=== PATIENT | female | born 1985 | race Caucasian/White ===

== ENCOUNTER 2018-10-11 06:37 | Day surgery (SDC) | payer OTHER ==
[~2018-10-11 06:37] MED LIST: Lactated Ringers 1,000 ML IV SCH
[2018-10-11] MEDS ORDERED: fentaNYL 250 MCG/5 ML SDV ONE (07:01)
[2018-10-11] MEDS ORDERED: Midazolam 1 MG/ML 2 ML SDV ONE (07:01)
[2018-10-11] MEDS ORDERED: Propofol 200 MG/20 ML SDV ONE (07:01)
[2018-10-11] MEDS ORDERED: Dexamethasone 4 MG/ML 5 ML MDV ONE (07:03)
[2018-10-11] MEDS ORDERED: Ondansetron 4 MG/2 ML SDV ONE (07:03)
--- NOTE | 2018-10-11 07:09 | PCM.PREANE ---
Preanesthetic Assessment - Anesthesia/Transfusion/Family Hx Anesthesia History: Prior Anesthesia Without Reaction Transfusion History: No Prior Transfusion(s) - Review of Systems General: No Symptoms Pulmonary: No Symptoms Cardiovascular: No Symptoms Gastrointestinal: No Symptoms Neurological: No Symptoms Other: Reports: None - Physical Assessment Height: 5 ft 9 in Weight: 72.121 kg ASA Class: 1 Mental Status: Alert & Oriented x3 Airway Class: Mallampati = 2 Dentition: Reports: Normal Dentition Thyro-Mental Finger Breadths: 3 Mouth Opening Finger Breadths: 3 ROM/Head Extension: Full Lungs: Clear to Auscultation, Normal Respiratory Effort Cardiovascular: Regular Rate, Regular Rhythm - Allergies Allergies/Adverse Reactions: Allergies Allergy/AdvReac Type Severity Reaction Status Date / Time wheat Allergy Headache Verified 10/07/18 12:34 - Acknowledgements Anesthesia Type Planned: General Anesthesia Pt an Appropriate Candidate for the Planned Anesthesia: Yes Alternatives and Risks of Anesthesia Discussed w Pt/Guardian: Yes Pt/Guardian Understands and Agrees with Anesthesia Plan: Yes PreAnesthesia Questionnaire - Past Health History Medical/Surgical History: Denies Medical/Surgical History HEENT History: Reports: None Cardiovascular History: Reports: None Respiratory History: Reports: None Gastrointestinal History: Reports: GERD Other Gastrointestinal History: glutten intolerant Genitourinary History: Reports: None 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: Musculoskeletal History: Reports: Back Pain, Chronic Neurological History: Reports: Other (See Below) Other Neuro History: hx of motion sickness Psychiatric History: Reports: Anxiety Endocrine/Metabolic History: Reports: None Hematologic History: Reports: None Immunologic History: Reports: None Oncologic (Cancer) History: Reports: None Dermatologic History: Reports: None - Infectious Disease History Infectious Disease History: Reports: None - Past Surgical History HEENT Surgical History: Reports: Naso-Sinus Surgery - SUBSTANCE USE Smoking Status *Q: Never Smoker Recreational Drug Use History: No - HOME MEDS Home Medications: Home Meds Escitalopram Oxalate 10 mg PO DAILY 10/07/18 [History] Th[facility] For Life Womens Oral Ta 1 tab PO DAILY 10/07/18 [History] - CURRENT (IN HOUSE) MEDS Current Meds: Current Medications Lactated Ringer's (Ringers, Lactated) 1,000 mls @ 125 mls/hr IV ASDIRECTED OMAR Discontinued Medications Dexamethasone (Dexamethasone) Confirm Administered Dose 20 mg .ROUTE .STK-MED ONE Stop: 10/11/18 07:04 Fentanyl (Sublimaze) Confirm Administered Dose 250 mcg .ROUTE .STK-MED ONE Stop: 10/11/18 07:02 Lidocaine HCl (Xylocaine-Mpf 1%) Confirm Administered Dose 5 mls @ as directed .ROUTE .STK-MED ONE Stop: 10/11/18 07:04 Midazolam HCl (Versed 1 Mg/Ml) Confirm Administered Dose 2 mg .ROUTE .STK-MED ONE Stop: 10/11/18 07:02 Ondansetron HCl (Zofran) Confirm Administered Dose 4 mg .ROUTE .STK-MED ONE Stop: 10/11/18 07:04 Propofol (Diprivan 20 Ml) Confirm Administered Dose 200 mg .ROUTE .STK-MED ONE Stop: 10/11/18 07:02
[2018-10-11] MEDS ORDERED: ceFAZolin 1 GM Vial ONE ×2 (07:13→08:01)
[2018-10-11] MEDS ORDERED: Bupivacaine 0.5% 10 ML SDV ONE (07:13)
[2018-10-11] MEDS ORDERED: Ketorolac 30 MG/ML SDV ONE (07:35)
[2018-10-11] MEDS ORDERED: Sodium Chloride 0.9% 20 ML ONE (08:01)
[2018-10-11] MEDS ORDERED: fentaNYL 100 MCG/2 ML SDV IVPUSH PRN (08:19)
[2018-10-11] MEDS ORDERED: ePHEDrine 50 MG/ML SDV ONE (08:23)
[2018-10-11] MEDS ORDERED: Acetaminophen/HYDROcodone 325-5 MG Tab PO PRN (08:49)
[2018-10-11] MEDS ORDERED: Ondansetron 4 MG/2 ML SDV IVPUSH PRN (08:49)
[2018-10-11] MEDS ORDERED: Morphine 10 MG/ML Syringe IVPUSH PRN (08:49)
--- NOTE | 2018-10-11 08:53 | PCM.OPNOTE ---
- General Post-Op/Procedure Note Date of Surgery/Procedure: 10/11/18 Operative Procedure(s): Repair incarcerated umbilical hernia Pre Op Diagnosis: Incarcerated umbilical hernia Post-Op Diagnosis: Same Anesthesia Technique: General LMA (ASA I) Primary Surgeon: Feliciano Bear Fluid Replacement, Intraop: 800 EBL in mLs: 5 Condition: Good Free Text/Narrative:: DICTATION 143240 CPT CODE 97710
[2018-10-11] MEDS ORDERED: Lactated Ringers 1,000 ML IV SCH (09:00)
--- NOTE | 2018-10-11 09:11 | PCM.POSTAN ---
POST ANESTHESIA ASSESSMENT - MENTAL STATUS Mental Status: Alert, Oriented - RESPIRATORY Respiratory Status: Respiratory Rate WNL, Airway Patent, O2 Saturation Stable - CARDIOVASCULAR CV Status: Pulse Rate WNL, Blood Pressure Stable - GASTROINTESTINAL GI Status: No Symptoms - PAIN Pain Score: 3 - POST OP HYDRATION Hydration Status: Adequate & Stable
[2018-10-11 12:54] VITALS: BP 123/67
--- NOTE | 2018-10-11 12:58 | OR ---
SURGEON: Feliciano Bear M.D. DATE OF PROCEDURE: 10/11/2018 OPERATION PERFORMED: Repair of incarcerated umbilical hernia. ANESTHESIA: General LMA. ASA CLASSIFICATION: I. PREOPERATIVE DIAGNOSIS: Incarcerated umbilical hernia. POSTOPERATIVE DIAGNOSIS: Incarcerated umbilical hernia. ESTIMATED BLOOD LOSS: 5 mL. INTRAOPERATIVE FLUID REPLACEMENT: 800 mL of crystalloid. DESCRIPTION OF PROCEDURE: The patient was taken to the operating room and placed on the operating table in the supine position. Time-out was called for appropriate identification of the patient and procedure. The surgical site had been marked prior to the patient entering the operating room. Thigh-high TEDs and sequential compression boots were placed. Following satisfactory attainment of general anesthesia with placement of an LMA, the abdomen was prepped with DuraPrep solution. Sterile drapes were applied. Skin below the umbilicus was infiltrated with 10 mL of 0.5% Marcaine solution. Transverse skin incision was made in the infraumbilical position and deepened down to the fascia. The hernia sac was identified and dissected away from the overlying umbilical skin. The contents were able to be reduced. The defect was approximately 8 mm in greatest dimension. Hemostasis was obtained with the use of electrocautery. The fascial defect was repaired with multiple interrupted 0 Ethibond sutures. All sutures were placed under direct vision and held with hemostats until the final suture had been placed. Once the sutures were secured, the patient was given Valsalva maneuver to 34 cm of water. There was no evidence of residual hernia and the repair felt solid. The wound was then inspected for hemostasis and irrigated with sterile saline solution. Subcutaneous tissue was closed with 3-0 Vicryl. The skin edges were reapproximated with subcuticular 4-0 Monocryl, reinforced with half-inch Steri- Strips. 2 x 2 and sterile Tegaderm pad were placed as a dressing. Sponge, needle, and instrument counts were all correct. Patient tolerated the procedure well. Following emergence from anesthesia and extubation, she was taken to recovery room in stable condition. EMILIE MENDIOLA /[id number]
== END 2018-10-11 10:58 | disposition home or self-care (01) ==
LOC: MW.SDS 06:37
PROVIDERS: ATTEND Surgery
DX: K42.0 Umbilical hernia with obstruction, without gangrene (principal); F41.9 Anxiety disorder, unspecified; Z91.018 Allergy to other foods; Z79.899 Other long term (current) drug therapy
CPT/HCPCS: 49587; 81025; J0131; J0690; J1100; J1885; J2001; J2250; J2405; J2704; J3010; J3490; J7120

== ENCOUNTER 2020-02-05 23:28 | Inpatient (IN) | payer OTHER ==
[2020-02-05] MEDS ORDERED: Ropivacaine 0.2% PF 2 MG/ML 20 ML SDV ONE (23:52)
[2020-02-05] MEDS ORDERED: fentaNYL 100 MCG/2 ML SDV ONE (23:52)
[2020-02-05] MEDS ORDERED: Ropivacaine HCl/PF 100 ML ONE (23:52)
[2020-02-06] MEDS ORDERED: Lidocaine 1% 50 ML MDV INJECT PRN (00:17)
[2020-02-06] MEDS ORDERED: Sodium Chloride 0.9% 10 ML Syringe FLUSH PRN (00:17)
[2020-02-06] MEDS ORDERED: Methylergonovine 0.2 MG/1 ML Amp IM PRN (00:17)
[2020-02-06] MEDS ORDERED: Carboprost Tromethamine 250 MCG/1 ML Amp IM PRN (00:17)
[2020-02-06] MEDS ORDERED: Sodium Chloride 0.9% 2.5 ML Syringe FLUSH PRN (00:17)
[2020-02-06] MEDS ORDERED: Sodium Chloride 0.9% 10 ML SDV IV PRN (00:17)
[2020-02-06] MEDS ORDERED: Tranexamic Acid 1,000 MG in Sodium Chloride 0.9% 100 ML IV PRN (00:17)
[2020-02-06] MEDS ORDERED: Butorphanol 1 MG/ML SDV IVPUSH PRN (00:17)
[2020-02-06] MEDS ORDERED: Water For Irrigation,Sterile 1,000 ML Container IRR PRN (00:17)
[2020-02-06] MEDS ORDERED: Nalbuphine 10 MG/1 ML Vial IVPUSH PRN (00:17)
[2020-02-06] MEDS ORDERED: Misoprostol 200 MCG Tab PO PRN (00:17)
--- NOTE | 2020-02-06 00:24 | PCM.PREANE ---
Preanesthetic Assessment - Anesthesia/Transfusion/Family Hx Anesthesia History: Prior Anesthesia Without Reaction Family History of Anesthesia Reaction: No Transfusion History: No Prior Transfusion(s) Intubation History: Unknown - Review of Systems General: No Symptoms Pulmonary: No Symptoms Cardiovascular: Other (History of pleural effusion 11/16) Gastrointestinal: No Symptoms Neurological: No Symptoms Other: Reports: None - Physical Assessment NPO Status Date: 02/06/20 NPO Status Time: 00:21 Height: 69 cm ASA Class: 2 Mental Status: Alert & Oriented x3 Airway Class: Mallampati = 1 Dentition: Reports: Normal Dentition Thyro-Mental Finger Breadths: 3 Mouth Opening Finger Breadths: 3 ROM/Head Extension: Full Lungs: Clear to Auscultation Cardiovascular: Regular Rate - Allergies Allergies/Adverse Reactions: Allergies Allergy/AdvReac Type Severity Reaction Status Date / Time wheat Allergy Headache Verified 01/07/20 16:13 - Blood Blood Available: No Product(s) Available: None - Anesthesia Plan Pre-Op Medication Ordered: None - Acknowledgements Anesthesia Type Planned: Epidural Pt an Appropriate Candidate for the Planned Anesthesia: Yes Alternatives and Risks of Anesthesia Discussed w Pt/Guardian: Yes Pt/Guardian Understands and Agrees with Anesthesia Plan: Yes Additional Comments: in active labor. Pain 8/10. Previous DONNA. ? answered. Permit signed. Wishes to proceed. 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: Musculoskeletal History: Reports: Back Pain, Chronic Neurological History: Reports: Other (See Below) Other Neuro History: hx of motion sickness Psychiatric History: Reports: Anxiety Endocrine/Metabolic History: Reports: None Hematologic History: Reports: None Immunologic History: Reports: None Oncologic (Cancer) History: Reports: None Dermatologic History: Reports: None - Infectious Disease History Infectious Disease History: Reports: None - Past Surgical History HEENT Surgical History: Reports: Naso-Sinus Surgery - HOME MEDS Home Medications: Home Meds Escitalopram Oxalate 10 mg PO BEDTIME 10/07/18 [History] Lansoprazole [Prevacid] 1 cap PO 01/07/20 [History] - CURRENT (IN HOUSE) MEDS Current Meds: Current Medications Discontinued Medications Fentanyl (Sublimaze) Confirm Administered Dose 100 mcg .ROUTE .STK-MED ONE Stop: 02/05/20 23:53 Ropivacaine (Naropin 0.2%) Confirm Administered Dose 100 mls @ as directed .ROUTE .STK-MED ONE Stop: 02/05/20 23:53 Ropivacaine (Naropin 0.2%) Confirm Administered Dose 20 ml .ROUTE .STK-MED ONE Stop: 02/05/20 23:53
[2020-02-06] MEDS ORDERED: Oxytocin/0.9 % Sodium Chloride 30 UNIT/500 ML BAG IV SCH (00:30)
[2020-02-06] MEDS: Lactated Ringers 1,000 ML IV SCH ×2 (00:44)
[2020-02-06] MEDS ORDERED: Oxytocin/0.9 % Sodium Chloride 30 UNIT/500 ML BAG ONE (01:15)
[2020-02-06] MEDS ORDERED: Acetaminophen 500 MG Tab PO PRN (02:37)
[2020-02-06] MEDS ORDERED: Bisacodyl 10 MG Supp RECTAL PRN (02:37)
[2020-02-06] MEDS ORDERED: Witch Hazel Medicated Pads 40/Jar TOP PRN (02:37)
[2020-02-06] MEDS ORDERED: Docusate Sodium 100 MG Cap PO PRN (02:37)
[2020-02-06] MEDS ORDERED: Lanolin 100% Cream 7 GM Tube TOP PRN (02:37)
[2020-02-06] MEDS ORDERED: oxyCODONE 5 MG Tab PO PRN (02:37)
[2020-02-06] MEDS ORDERED: Benzocaine/Menthol 20%-0.5% Spray 78 GM Cannister TOP PRN (02:37)
--- NOTE | 2020-02-06 02:44 | PCM.DEL ---
L & D Note - General Info Date of Service: 02/06/20 Mother's Due Date: 02/16/20 - Delivery Note Labor: Spontaneous Delivery Outcome: Livebirth Infant Delivery Method: Spontaneous Vaginal Delivery-Single Presentation: Right Occiput Anterior (COMPA) Nuchal Cord: None Anesthesia Type: Epidural Amniotic Fluid Description: Clear Episiotomy Type: None Laceration: 1st Degree Suture type: Vicryl Suture size: 3-0 Placenta: Intact, Spontaneous Cord: 3 Vessels Estimated Blood Loss: 300 Resuscitation Needed: No Score 1 min: 8 Score 5 min: 8 - General Info Date of Service: 02/06/20 - Patient Data Weight - Most Recent: 78.018 kg Lab Results Last 24 Hours: Laboratory Results - last 24 hr 02/06/20 02/06/20 02/06/20 Range/Units 00:00 00:00 00:07 WBC 8.83 (4.0-11.0) K/uL RBC 4.15 L (4.30-5.90) M/uL Hgb 11.2 L (12.0-16.0) g/dL Hct 34.3 L (36.0-46.0) % MCV 82.7 (80.0-98.0) fL MCH 27.0 (27.0-32.0) pg MCHC 32.7 (31.0-37.0) g/dL RDW Std Deviation 40.7 (28.0-62.0) fl RDW Coeff of Randi 13 (11.0-15.0) % Plt Count 272 (150-400) K/uL MPV 10.10 (7.40-12.00) fL Nucleated RBC % 0.0 /100WBC Nucleated RBCs # 0 K/uL COVID-19 ([facility]) NEGATIVE (NEGATIVE) Blood Type A POSITIVE Antibody Screen NEGATIVE Med Orders - Current: Current Medications Acetaminophen (Tylenol Extra Strength) 1,000 mg PO Q6H PRN PRN Reason: Pain Benzocaine/Menthol (Dermoplast Pain Relief 20%-0.5% [place]) 78 gm TOP ASDIRECTED PRN PRN Reason: Perineal Comfort Measure Bisacodyl (Dulcolax) 10 mg RECTAL ONETIME PRN PRN Reason: Constipation Butorphanol Tartrate (Stadol) 1 mg IVPUSH Q1H PRN PRN Reason: Pain Carboprost Tromethamine (Hemabate Ds) 250 mcg IM ASDIRECTED PRN PRN Reason: Post Hemorrhage Docusate Sodium (Colace) 100 mg PO BID PRN PRN Reason: Constipation Emollient Ointment (Lansinoh Hpa) 0 gm TOP ASDIRECTED PRN PRN Reason: Sore Nipples Escitalopram Oxalate (Lexapro) 10 mg PO BEDTIME [facility] Lactated Ringer's (Ringers, Lactated) 1,000 mls @ 150 mls/hr IV ASDIRECTED [facility] Last Admin: 02/06/20 00:44 Dose: 150 mls/hr Documented by: Oxytocin/Sodium Chloride (Oxytocin 30 Unit/500 Ml-Ns) 30 unit in 500 mls @ 500 mls/hr IV TITRATE [facility] Last Admin: 02/06/20 02:20 Dose: 999 mls/hr Documented by: Tranexamic Acid 1,000 mg/ (Sodium Chloride) 110 mls @ 660 mls/hr IV ONETIME PRN PRN Reason: Bleeding Ibuprofen (Motrin) 800 mg PO Q8H PRN PRN Reason: Pain Lidocaine HCl (Xylocaine 1%) 50 ml INJECT ONETIME PRN PRN Reason: Laceration repair Methylergonovine Maleate (Methergine) 0.2 mg IM ASDIRECTED PRN PRN Reason: Post Hemorrhage Misoprostol (Cytotec) 200 mcg PO ONETIME PRN PRN Reason: Post Hemorrhage Nalbuphine HCl (Nubain) 10 mg IVPUSH Q1H PRN PRN Reason: Pain (severe 7-10) Oxycodone HCl (Oxycodone) 5 mg PO Q2H PRN PRN Reason: Pain Sodium Chloride (Saline Flush) 10 ml FLUSH ASDIRECTED PRN PRN Reason: Keep Vein Open Sodium Chloride (Saline Flush) 2.5 ml FLUSH ASDIRECTED PRN PRN Reason: Keep Vein Open Sodium Chloride (Normal Saline) 10 ml IV ASDIRECTED PRN PRN Reason: IV Use Sterile Water (Sterile Water For Irrigation) 1,000 ml IRR ASDIRECTED PRN PRN Reason: delivery Witch Kathy (Tucks) 1 pad TOP ASDIRECTED PRN PRN Reason: comfort care Discontinued Medications Fentanyl (Sublimaze) Confirm Administered Dose 100 mcg .ROUTE .STK-MED ONE Stop: 02/05/20 23:53 Ropivacaine (Naropin 0.2%) Confirm Administered Dose 100 mls @ as directed .ROUTE .STK-MED ONE Stop: 02/05/20 23:53 Oxytocin/Sodium Chloride (Oxytocin 30 Unit/500 Ml-Ns) Confirm Administered Dose 30 unit in 500 mls @ as directed .ROUTE .STK-MED ONE Stop: 02/06/20 01:16 Ropivacaine (Naropin 0.2%) Confirm Administered Dose 20 ml .ROUTE .STK-MED ONE Stop: 02/05/20 23:53 - Problem List & Annotations (1) Vaginal delivery SNOMED Code(s): 290367305 Code(s): O80 - ENCOUNTER FOR FULL-TERM UNCOMPLICATED DELIVERY Status: Acute Current Visit: No - Problem List Review Problem List Initiated/Reviewed/Updated: Yes - My Orders Last 24 Hours: My Active Orders 02/06/20 00:00 RPR (SYPHILIS SERO) W/ RFLX [REF] Routine 02/06/20 00:17 Patient Status [ADT] Routine Heart Tones [RC] CONTINUOUS Non Stress Test [RC] PER UNIT ROUTINE May Shower [RC] ASDIRECTED Notify Provider [RC] PRN Up ad Vandana [RC] ASDIRECTED Vaginal Exam [RC] PRN Vital Signs [RC] PER UNIT ROUTINE Butorphanol [Stadol] 1 mg IVPUSH Q1H PRN Carboprost Tromethamine [Hemabate DS] 250 mcg IM ASDIRECTED PRN Lidocaine 1% [Xylocaine 1%] 50 ml INJECT ONETIME PRN Methylergonovine [Methergine] 0.2 mg IM ASDIRECTED PRN Nalbuphine [Nubain] 10 mg IVPUSH Q1H PRN Sodium Chloride 0.9% [Normal Saline] 10 ml IV ASDIRECTED PRN Sodium Chloride 0.9% [Saline Flush] 10 ml FLUSH ASDIRECTED PRN Sodium Chloride 0.9% [Saline Flush] 2.5 ml FLUSH ASDIRECTED PRN Tranexamic Acid [Cyklokapron] 1,000 mg Sodium Chloride 0.9% [Normal Saline] 100 ml IV ONETIME Water For Irrigation,Sterile [Sterile Water for Irrigation] 1,000 ml IRR ASDIRECTED PRN miSOPROStoL [Cytotec] 200 mcg PO ONETIME PRN Scalp Electrode [WOMSER] Per Unit Routine Peripheral IV Insertion Adult [OM.PC] Routine Resuscitation Status Routine 02/06/20 00:30 Lactated Ringers [Ringers, Lactated] 1,000 ml IV ASDIRECTED Oxytocin/0.9 % Sodium Chloride [Oxytocin 30 Unit/500 ML-NS] 30 unit in 500 ml IV TITRATE 02/06/20 02:37 Notify Provider Vital Signs [RC] ASDIRECTED Acetaminophen [Tylenol Extra Strength] 1,000 mg PO Q6H PRN Benzocaine/Menthol [Dermoplast Pain Relief 20%-0.5% [place]] 78 gm TOP ASDIRECTED PRN Docusate Sodium [Colace] 100 mg PO BID PRN Ibuprofen [Motrin] 800 mg PO Q8H PRN Lanolin [Lansinoh HPA] See Dose Instructions TOP ASDIRECTED PRN bisacodyL [Dulcolax] 10 mg RECTAL ONETIME PRN oxyCODONE 5 mg PO Q2H PRN witch Kathy [Tucks] 1 pad TOP ASDIRECTED PRN Breast Pump [WOMSER] Per Unit Routine 02/06/20 02:38 Patient Status [ADT] Routine Cooling Warming Measures [RC] ASDIRECTED May Shower [RC] ASDIRECTED Up ad Vandana [RC] ASDIRECTED Vital Signs [RC] PER UNIT ROUTINE Assess Lochia [WOMSER] Per Unit Routine Assess Uterine Involution [WOMSER] Per Unit Routine Ice Therapy [OM.PC] Per Unit Routine Perineal Care [OM.PC] Per Unit Routine Peripheral IV Discontinue [OM.PC] Routine Sitz Bath [OM.PC] Per Unit Routine 02/06/20 Breakfast Regular Diet [DIET] 02/06/20 21:00 Escitalopram [Lexapro] 10 mg PO BEDTIME 02/07/20 05:11 HEMOGLOBIN/HEMATOCRIT,HH [HEME] Timed - Assessment Assessment:: 34yo s/p at 38w4d - Plan Plan:: Admit to unit for routine care. Continue Escitalopram.
--- NOTE | 2020-02-06 03:27 | OR ---
SURGEON: Natalie Avila MD DATE OF PROCEDURE: 02/06/2020 PREOPERATIVE DIAGNOSES: 1. A 34-year-old G4, P3-0-0-3, at 38 weeks and 3 days' gestation. 2. Labor. 3. Group B Streptococcus negative. POSTOPERATIVE DIAGNOSES: 1. A 34-year-old G4, P4-0-0-4, at 38 weeks and 4 days' gestation. 2. Labor. 3. Group B Streptococcus negative. PROCEDURES: 1. Spontaneous vaginal delivery. 2. Repair of a first-degree perineal laceration. PRIMARY SURGEON: Natalie Avila MD ANESTHESIA: Epidural. ESTIMATED BLOOD LOSS: 300 mL. FINDINGS: A live female infant in a cephalic presentation. scores are 8 and 8 at 1 and 5 minutes respectively. Weight is pending. Placenta is intact and with a 3- vessel cord. A first-degree perineal laceration. INDICATIONS: This is a 34-year-old G4, P3-0-0-3, who presented at 38 weeks and 3 days' gestation complaining of contractions. Upon presentation, her cervix was found to be 5 cm dilated, which was a change from clinic earlier in the day when she was 3 cm dilated. She was admitted to Labor and Delivery for expectant management of labor. She received an epidural for pain control. She progressed to complete cervical dilation and had spontaneous rupture of membranes with clear fluid noted. I was called to the room. DESCRIPTION OF PROCEDURE: I arrived to the room with station at +1 station. Over the next 2 contractions, the patient pushed and delivered a live female infant. The head was delivered, followed by the shoulders and the remainder of the body. The infant was placed on the maternal abdomen. After approximately 60 seconds, the cord was clamped and cut. The placenta then delivered intact and with a 3- vessel cord via the Aguayo-Jones maneuver. The perineum was inspected, and a first-degree perineal laceration was noted. This was repaired to anatomy and hemostasis with 3-0 Vicryl. The fundus was firm below the umbilicus with minimal bleeding. The patient and infant tolerated delivery well. [id number] / MODL /[id number] NAV
--- NOTE | 2020-02-06 07:33 | PCM48HPAN ---
Post Anesthesia Note - EVALUATION WITHIN 48HRS OF ANESTHETIC Vital Signs in Normal Range: Yes Patient Participated in Evaluation: Yes Respiratory Function Stable: Yes Airway Patent: Yes Cardiovascular Function Stable: Yes Hydration Status Stable: Yes Pain Control Satisfactory: Yes Nausea and Vomiting Control Satisfactory: Yes Mental Status Recovered: Yes - COMMENTS/OBSERVATIONS Free Text/Narrative:: Did well. No problems noted post. Catheter pulled, tip intact.
[2020-02-06] MEDS: Ibuprofen 800 MG Tab PO PRN ×2 (09:08→17:14)
[2020-02-06] MEDS ORDERED: Escitalopram 10 MG Tab PO SCH (21:00)
[2020-02-07 07:58] VITALS: BP 128/79; PULSE 76
[2020-02-07] MEDS: Ibuprofen 800 MG Tab PO PRN (07:59)
--- NOTE | 2020-02-07 08:04 | PCM.PNPP ---
- General Info Date of Service: 02/07/20 Functional Status: Reports: Pain Controlled, Tolerating Diet, Ambulating, Urinating - Review of Systems General: Reports: No Symptoms HEENT: Reports: No Symptoms Pulmonary: Reports: No Symptoms Cardiovascular: Reports: No Symptoms Gastrointestinal: Reports: No Symptoms Genitourinary: Reports: No Symptoms Musculoskeletal: Reports: No Symptoms Skin: Reports: No Symptoms Neurological: Reports: No Symptoms Psychiatric: Reports: No Symptoms - General Info Date of Service: 02/07/20 - Patient Data Vital Signs - Most Recent: Last Vital Signs Temp 37.0 C 02/07/20 07:57 Pulse 76 02/07/20 07:57 Resp 16 02/07/20 07:57 BP 128/79 02/07/20 07:57 Pulse Ox 97 02/07/20 07:57 Weight - Most Recent: 78.018 kg Lab Results - Last 24 Hours: Laboratory Results - last 24 hr 02/07/20 Range/Units 05:50 Hgb 10.6 L (12.0-16.0) g/dL Hct 33.0 L (36.0-46.0) % Med Orders - Current: Current Medications Acetaminophen (Tylenol Extra Strength) 1,000 mg PO Q6H PRN PRN Reason: Pain Benzocaine/Menthol (Dermoplast Pain Relief 20%-0.5% [place]) 78 gm TOP ASDIRECTED PRN PRN Reason: Perineal Comfort Measure Last Admin: 02/06/20 05:35 Dose: 1 canister Documented by: Bisacodyl (Dulcolax) 10 mg RECTAL ONETIME PRN PRN Reason: Constipation Butorphanol Tartrate (Stadol) 1 mg IVPUSH Q1H PRN PRN Reason: Pain Carboprost Tromethamine (Hemabate Ds) 250 mcg IM ASDIRECTED PRN PRN Reason: Post Hemorrhage Docusate Sodium (Colace) 100 mg PO BID PRN PRN Reason: Constipation Last Admin: 02/06/20 21:27 Dose: 100 mg Documented by: Emollient Ointment (Lansinoh Hpa) 0 gm TOP ASDIRECTED PRN PRN Reason: Sore Nipples Escitalopram Oxalate (Lexapro) 10 mg PO BEDTIME [facility] Last Admin: 02/06/20 21:27 Dose: 10 mg Documented by: Lactated Ringer's (Ringers, Lactated) 1,000 mls @ 150 mls/hr IV ASDIRECTED [facility] Last Admin: 02/06/20 00:44 Dose: 150 mls/hr Documented by: Oxytocin/Sodium Chloride (Oxytocin 30 Unit/500 Ml-Ns) 30 unit in 500 mls @ 500 mls/hr IV TITRATE [facility] Last Admin: 02/06/20 02:20 Dose: 999 mls/hr Documented by: Tranexamic Acid 1,000 mg/ (Sodium Chloride) 110 mls @ 660 mls/hr IV ONETIME PRN PRN Reason: Bleeding Ibuprofen (Motrin) 800 mg PO Q8H PRN PRN Reason: Pain Last Admin: 02/07/20 07:59 Dose: 800 mg Documented by: Lidocaine HCl (Xylocaine 1%) 50 ml INJECT ONETIME PRN PRN Reason: Laceration repair Methylergonovine Maleate (Methergine) 0.2 mg IM ASDIRECTED PRN PRN Reason: Post Hemorrhage Misoprostol (Cytotec) 200 mcg PO ONETIME PRN PRN Reason: Post Hemorrhage Nalbuphine HCl (Nubain) 10 mg IVPUSH Q1H PRN PRN Reason: Pain (severe 7-10) Oxycodone HCl (Oxycodone) 5 mg PO Q2H PRN PRN Reason: Pain Sodium Chloride (Saline Flush) 10 ml FLUSH ASDIRECTED PRN PRN Reason: Keep Vein Open Sodium Chloride (Saline Flush) 2.5 ml FLUSH ASDIRECTED PRN PRN Reason: Keep Vein Open Sodium Chloride (Normal Saline) 10 ml IV ASDIRECTED PRN PRN Reason: IV Use Sterile Water (Sterile Water For Irrigation) 1,000 ml IRR ASDIRECTED PRN PRN Reason: delivery Witch Kathy (Tucks) 1 pad TOP ASDIRECTED PRN PRN Reason: comfort care Last Admin: 02/06/20 05:35 Dose: 1 tub Documented by: Discontinued Medications Fentanyl (Sublimaze) Confirm Administered Dose 100 mcg .ROUTE .STK-MED ONE Stop: 02/05/20 23:53 Ropivacaine (Naropin 0.2%) Confirm Administered Dose 100 mls @ as directed .ROUTE .STK-MED ONE Stop: 02/05/20 23:53 Oxytocin/Sodium Chloride (Oxytocin 30 Unit/500 Ml-Ns) Confirm Administered Dose 30 unit in 500 mls @ as directed .ROUTE .STK-MED ONE Stop: 02/06/20 01:16 Ropivacaine (Naropin 0.2%) Confirm Administered Dose 20 ml .ROUTE .STK-MED ONE Stop: 02/05/20 23:53 - Infant Interaction Infant Disposition, : in Room with Family Interaction: Holding Feeding: Breastfed Infant; Nursed Well, Continues to Breastfeed Support Person: - Recovery Exam Fundal Tone: Firm Fundal Level: 2 Fingerbreadths Below Umbilicus Fundal Placement: Midline Lochia Amount: Scant Lochia Color: Rubra/Red Episiotomy/Laceration: Approximated Bladder Status: Voiding Urinary Elimination: Voided - Exam General: Alert Neck: Supple Lungs: Normal Respiratory Effort GI/Abdominal Exam: Soft, Non-Tender, No Distention Extremities: Normal Range of Motion, Non-Tender, No Pedal Edema Skin: Warm, Dry, Intact Neurological: No New Focal Deficit Psy/Mental Status: Alert, Normal Affect, Normal Mood - Problem List & Annotations (1) Vaginal delivery SNOMED Code(s): 687929077 Code(s): O80 - ENCOUNTER FOR FULL-TERM UNCOMPLICATED DELIVERY Status: Acute Current Visit: No - Problem List Review Problem List Initiated/Reviewed/Updated: Yes - Assessment Assessment:: PPD #1 after , stable minimal lochia, will continue on escitalopram, mood is doing well, would like to be discharged today. - Plan Plan:: Precautions reviewed, dismiss to home.
== END 2020-02-07 12:03 | disposition home or self-care (01) | DRG 807 ==
LOC: MW.OBCHECK 23:28 → MW.OB 23:29 → MW.OBCHECK 02-06 00:17 → MW.OB 02-06 00:17 → OBSVTOIN 02-06 02:19 → MW.OB 02-06 09:41
PROVIDERS: ADMIT Obstetrics & Gynecology; ATTEND Obstetrics & Gynecology
PROC: 10E0XZZ Delivery of Products of Conception, External Approach (ICD-10-PCS; principal; 2020-02-06)
PROC: 0HQ9XZZ Repair Perineum Skin, External Approach (ICD-10-PCS; 2020-02-06)
PROC: 3E0R3BZ Introduction of Anesthetic Agent into Spinal Canal, Percutaneous Approach (ICD-10-PCS; 2020-02-06)
DX: O99.344 Other mental disorders complicating childbirth (principal); Z37.0 Single live birth; F41.9 Anxiety disorder, unspecified; O99.62 Diseases of the digestive system complicating childbirth; K21.9 Gastro-esophageal reflux disease without esophagitis; O70.0 First degree perineal laceration during delivery; Z11.59 Encounter for screening for other viral diseases; Z3A.38 38 weeks gestation of pregnancy
CPT/HCPCS: 36415; 59020; 59409; 85014; 85018; 85027; 86592; 86593; 86850; 86900; 86901; A9270-GY; J2590; J2795; J3010; J7120; U0002

== ENCOUNTER 2024-01-03 21:32 | Emergency (ER) | payer OTHER ==
[2024-01-03] MEDS: Ibuprofen 600 MG Tab PO ONE (22:53)
[2024-01-03] MEDS: traMADol 50 MG Tab PO ONE (22:53)
[2024-01-03 23:04] VITALS: BP 115/76; PULSE 82
== END 2024-01-03 23:05 | disposition home or self-care (01) ==
LOC: MW.ED 21:32
DX: S70.12XA Contusion of left thigh, initial encounter (principal); K21.9 Gastro-esophageal reflux disease without esophagitis; Z79.899 Other long term (current) drug therapy; Z91.018 Allergy to other foods; Z75.8 Other problems related to medical facilities and other health care; V80.010A Animal-rider injured by fall from or being thrown from horse in noncollision accident, initial encounter; Y93.52 Activity, horseback riding
CPT/HCPCS: 73552; 99283; A9270